=== PATIENT | female | born 1995 | race Two or more races ===

== ENCOUNTER 2019-07-24 18:11 | Emergency (ER) | payer BC ==
[~2019-07-24] VITALS: Ht 167.6 cm; Wt 68.9 kg
[2019-07-24 18:37] VITALS: Ht 167.6 cm; Wt 68.9 kg
[2019-07-24 21:51] VITALS: BP 114/72
== END 2019-07-24 22:27 | disposition home or self-care (01) ==
LOC: ED 18:11
DX: B27.90 Infectious mononucleosis, unspecified without complication (principal)
CPT/HCPCS: 86308; 87804; J1885